=== PATIENT | female | born 1980 | race Caucasian/White ===

== ENCOUNTER 2017-02-10 11:32 | Emergency (ER) | payer OTHER ==
--- NOTE | 2017-02-10 11:39 | ED ---
Skin Complaint - History of Current Complaint Time Seen by Provider: 02/10/17 11:38 Stated Complaint: SKIN COMPLAINT - Allergy/Home Medications Allergies/Adverse Reactions: Allergies Allergy/AdvReac Type Severity Reaction Status Date / Time No Known Allergies Allergy Verified 02/10/17 11:38 Discharge - Discharge Plan Condition: Stable Disposition: HOME Patient Education Materials: Rash in Children (ED)
[2017-02-10 11:45] VITALS: BP 117/80
--- NOTE | 2017-02-10 12:03 | UC ---
Skin Complaint HPI - HPI Summary HPI Summary: Pt presents wiht rash on torso that began 3 weeks ago. Pt denies known food or environmental allergies. Pt reports that the rash is "very itchy" and began as a small area on upper left breast after wearing silicon breast pad for 3+ hours. - History of Current Complaint Chief Complaint: UCSkin Time Seen by Provider: 02/10/17 11:38 Stated Complaint: SKIN COMPLAINT Hx Obtained From: Patient Hx Last Menstrual Period: unknown ?: No Onset/Duration: Sudden Onset, Lasting Weeks - 3 Skin Exposure Onset/Duration: Weeks Ago Timing: Constant Onset Severity: Mild Current Severity: Mild Location: Generalized - torso Character: Pruritus Aggravating: Nothing Alleviating: Unknown Associated Signs & Symptoms: Positive: Rash Related History: Possible Reaction to: Environmental Exposure - possible reaction to silicone breast pads - Allergy/Home Medications Allergies/Adverse Reactions: Allergies Allergy/AdvReac Type Severity Reaction Status Date / Time No Known Allergies Allergy Verified 02/10/17 11:38 Home Medications: Home Medications Hydrocortisone 1% CREAM* 1 applic TOPICAL DAILY 02/10/17 [History Confirmed 10/24] Levonorgestrel (Iud) [Mirena IUD] 20 mcg IU ONCE 02/10/17 [History Confirmed 10/24] Review of Systems Constitutional: Negative Skin: Rash Eyes: Negative, Diplopia ENT: Negative Respiratory: Negative Cardiovascular: Negative Gastrointestinal: Negative Genitourinary: Negative Motor: Negative Neurovascular: Negative Musculoskeletal: Negative Neurological: Negative Psychological: Negative All Other Systems Reviewed And Are Negative: Yes PMH/Surg Hx/FS Hx/Imm Hx Previously Healthy: Yes - Surgical History Surgical History: None - Family History Known Family History: Positive: Cardiac Disease - Social History Occupation: Employed Full-time Lives: With Family Alcohol Use: None Substance Use Type: None Smoking Status (MU): Heavy Every Day Tobacco Smoker Type: Cigarettes Amount Used/How Often: 1 PPD Have You Smoked in the Last Year: Yes Physical Exam Triage Information Reviewed: Yes Appearance: Well-Appearing Vital Signs: Initial Vital Signs Temp 99.7 F 02/10/17 11:40 Pulse 69 02/10/17 11:40 Resp 14 02/10/17 11:40 BP 117/80 02/10/17 11:40 Pulse Ox 99 02/10/17 11:40 Vital Signs Reviewed: Yes Eye Exam: Normal ENT Exam: Normal Dental Exam: Normal Neck exam: Normal Respiratory Exam: Normal Abdominal Exam: Other - rash round, erythematous, flaky patches Musculoskeletal Exam: Normal Neurological Exam: Normal Psychological Exam: Normal Skin: Positive: rashes - scaterred round erythematous areas on torso with patches of flaky skin Course/Dx - Differential Diagnoses - Skin Complaint Differential Diagnoses: Contact Dermatitis, Scabies, Tinea - Diagnoses Provider Diagnoses: Tinea, ring worm Discharge - Discharge Plan Condition: Stable Disposition: HOME Patient Education Materials: Rash in Children (ED)
== END 2017-02-10 12:37 | disposition home or self-care (01) ==
LOC: UCCORT 11:32
DX: B35.4 Tinea corporis (principal); F17.210 Nicotine dependence, cigarettes, uncomplicated
CPT/HCPCS: 99202; G0463

== ENCOUNTER 2018-05-28 13:14 | Emergency (ER) | payer OTHER ==
[2018-05-28 13:48] VITALS: BP 116/74
--- NOTE | 2018-05-28 15:49 | UC ---
Abdominal Pain Female HPI - HPI Summary HPI Summary: 37 y/o female with h/o abdominal pain, flank pain x 24 hours, increased this AM after drinking coffee. No urinary pain, no change in bowel motions, + sharp, colicy pain with incrased abdominal bloating, bloating since has resolved, no flatus, + bleching. no fever, chills. no , no vaginal discharge , no uinary symptoms. - History of Current Complaint Chief Complaint: UCGeneralIllness Stated Complaint: RT SIDE BACK PAIN/STOMACH BLOATING Time Seen by Provider: 05/28/18 14:18 Hx Obtained From: Patient Hx Last Menstrual Period: 05/18/18 Onset/Duration: Sudden Onset, Lasting Days Severity Initially: Moderate Severity Currently: Moderate Pain Intensity: 5 Pain Scale Used: 0-10 Numeric Allergies/Adverse Reactions: Allergies Allergy/AdvReac Type Severity Reaction Status Date / Time No Known Allergies Allergy Verified 05/28/18 13:44 PMH/Surg Hx/FS Hx/Imm Hx Previously Healthy: Yes - Surgical History Surgical History: Yes Surgery Procedure, Year, and Place: x 2 - Family History Known Family History: Positive: Cardiac Disease - Social History Alcohol Use: Weekly Substance Use Type: None Smoking Status (MU): Heavy Every Day Tobacco Smoker Type: Cigarettes Amount Used/How Often: 1/2 PPD Have You Smoked in the Last Year: Yes Review of Systems All Other Systems Reviewed And Are Negative: Yes Gastrointestinal: Positive: Abdominal Pain. Negative: Vomiting, Diarrhea, Nausea Genitourinary: Negative: Dysuria, Hematuria, Frequency, Urgency Is Patient Immunocompromised?: No Physical Exam Triage Information Reviewed: Yes Appearance: Well-Appearing, No Pain Distress, Well-Nourished Vital Signs: Initial Vital Signs Temp 97.8 F 05/28/18 13:39 Pulse 64 05/28/18 13:39 Resp 15 05/28/18 13:39 BP 116/74 05/28/18 13:39 Pulse Ox 100 05/28/18 13:39 Eyes: Positive: Conjunctiva Clear Abdomen Description: Positive: No Organomegaly, Soft, CVA Tenderness (R) - minimal, Guarding - RUQ, Other: - + murphys sign. Negative: CVA Tenderness (L) , Distended, McBurney's Point Tenderness Bowel Sounds: Positive: Present Skin Exam: Normal Abd Pain Female Course/Dx - Course Course Of Treatment: RUQ US- negative for GB dx, liver dx, UA+ bili, repeat UA with primary physician within 1-2 weeks, PPI given for gastritis, elimination diet, follow up with PCP for abdominal pain if persists - Differential Dx/Diagnosis Differential Diagnosis: Appendicitis, Bowel Obstruction, Diverticulitis, Peptic Ulcer Disease, Urinary Tract Infection Provider Diagnoses: Gastritis Discharge - Sign-Out/Discharge Documenting (check all that apply): Patient Departure All imaging exams completed and their final reports reviewed: Yes - Discharge Plan Condition: Good Disposition: HOME Prescriptions: Pantoprazole Sodium [Protonix] 20 mg PO DAILY #30 tablet. Patient Education Materials: Gluten-Free Diet (ED), Diet for Stomach Ulcers and Gastritis (ED) Forms: *Work Release Referrals: Roman Ndiaye NP [Primary Care Provider] - Additional Instructions: - No motrin/ ibuprofen, alcohol, spicy foods - Eliminate gluten, introduce when pain has decreased to see if symptoms arise - Follow up with primary physician within 1-2 weeks for repeat urine testing - Increase fluid intake - Protonix daily - Billing Disposition and Condition Condition: GOOD Disposition: Home
== END 2018-05-28 15:50 | disposition home or self-care (01) ==
LOC: UCCORT 13:14
DX: K29.70 Gastritis, unspecified, without bleeding (principal); F17.210 Nicotine dependence, cigarettes, uncomplicated
CPT/HCPCS: 76705; 81003; 84702; 99212; G0463